=== PATIENT | female | born 1980 | race Caucasian/White ===

== ENCOUNTER → 2020-09-21 10:39 | Outpatient (CLI) | payer OTHER, SELFPAY ==
--- NOTE | ~2020-09-21 | MM_ITS ---
EXAMINATION: MM screening [facility] BI w jose luis HISTORY: Screening TECHNIQUE: Craniocaudal and mediolateral oblique 3-D tomosynthesis images were obtained and synthetic 2-D images were generated. CAD analysis was submitted and interpreted. COMPARISON: 08/07/2016 BREAST PARENCHYMAL COMPOSITION: The breasts are extremely dense, which lowers the sensitivity of mamm ography FINDINGS: There is no evidence of suspicious mass, calcification, or architectural distortion to sugg est malignancy in either breast. There has been no suspicious interval change. IMPRESSION: 1. No mammographic evidence of malignancy. 2. Recommend routine screening mammography in one year. BI-RADS Category 1: Negative Reviewed, dictated and finalized at location A. SUPERVISOR OF ENGINES
== END ==
PROVIDERS: PCP Physician Assistant; Visit Provider Obstetrics & Gynecology
DX: Z12.31 Encounter for screening mammogram for malignant neoplasm of breast (principal)
CPT/HCPCS: 77063; 77067

== ENCOUNTER → 2020-11-27 14:10 | Outpatient (CLI) | payer OTHER, SELFPAY ==
--- NOTE | ~2020-11-27 | MR_ITS ---
EXAMINATION: MR knee LT wo con DATE: 11/27/2020 14:50 INDICATION: Lateral left knee pain TECHNIQUE: Magnetic resonance imaging (MRI) of the left knee was performed without intravenous contra st. Sequences included coronal PD-weighted FSE, coronal PD-weighted FS FSE, sagittal T2-weighted FSE , sagittal PD-weighted FS FSE and axial PD weighted fat saturated FSE. COMPARISON: None. FINDINGS: Medial compartment: Medial meniscus is normal. Partial-thickness chondral fissuring without degenerative subchondral howard ges at the anterior weightbearing medial femoral condyle. Lateral compartment: Lateral meniscus is normal. Small region of partial-thickness chondral ulceration without degenerativ e subchondral changes at the central weightbearing lateral femoral condyle. Patellofemoral compartment: Horizontal band of deep chondral fissuring extending across the central aspect of the talus and the m edial to the lateral facet. Additional chondral fissuring with underlying subarticular edema at the c entral aspect of the trochlear groove and lateral trochlea. There is a partial-thickness chondral fla p tear at the cephalad aspect of the medial trochlea. Ligaments and tendons: Posterior cruciate ligament is normal. Changes of chronic anterior cruciate ligament reconstruction. There is increased intrasubstance signal and lax appearance to the distal aspect of the graft as it a pproaches the tibial tunnel consistent with at least partial tear. There is a cyclops lesion with janey bular region of torn ligament tissue. Is unclear whether this arises from the graft or represents res idual tissue from [place] ligament. The medial collateral ligament and fibular collateral ligament com plex are normal. Postoperative change of prior patellar tendon autograft harvest with sagittal orient ed band of scarring along the patellar tendon and mild hypertrophic change at the osseous donor sites at the inferior patella and anterior tibial tubercle. The visualized medial and lateral hamstring te ndons as well as the iliotibial band are normal. Fluid: Small left knee joint effusion. No loose osteochondral bodies identified. Small to moderate-sized Ruben er's cyst. Osseous/other: Alignment is normal. No fracture or pathologic marrow replacing process. IMPRESSION: 1. Anterior cruciate ligament reconstruction with likely patellar tendon autograft and at least parti al tear of the distal graft. Correlate with physical exam to assess for degree of residual functional integrity. 2. Mild tricompartmental osteoarthritis with small regions of moderate grade chondromalacia in the me dial and lateral compartments and extensive moderate to high-grade chondromalacia in the patellofemor al compartment. 3. Likely reactive small left knee joint effusion and small to moderate-sized Khoury's cyst. Reviewed, dictated and finalized at location A. IMPRESSION: 1. Anterior cruciate ligament reconstruction with likely patellar tendon autogr aft and at least partial tear of the distal graft. Correlate with physical exam to assess for degree of residual functional integrity. 2. Mild tricompartmental osteoarthritis with small regions of moderate grade ch ondromalacia in the medial and lateral compartments and extensive moderate to h igh-grade chondromalacia in the patellofemoral compartment. 3. Likely reactive small left knee joint effusion and small to moderate-sized B froy's cyst.
== END ==
PROVIDERS: PCP Physician Assistant; Visit Provider Internal Medicine
DX: M17.12 Unilateral primary osteoarthritis, left knee (principal); M71.22 Synovial cyst of popliteal space [Baker], left knee
CPT/HCPCS: 73721

== ENCOUNTER → 2021-09-28 10:41 | Outpatient (CLI) | payer OTHER, SELFPAY ==
--- NOTE | ~2021-09-28 | MM_ITS ---
EXAMINATION: MM screening gilles BI w jose luis HISTORY: Screening mammogram TECHNIQUE: Craniocaudal and mediolateral oblique 3-D tomosynthesis images were obtained and synthetic 2-D images were generated. Bilateral rotated lateral CC views. CAD analysis was submitted and interp reted. COMPARISON: September 21, 2020, August 07, 2016 bilateral screening mammogram examinations BREAST PARENCHYMAL COMPOSITION: The breasts are extremely dense, which lowers the sensitivity of mamm ography. FINDINGS: There is no evidence of suspicious mass, calcification, or architectural distortion to sugg est malignancy in either breast. There has been no suspicious interval change. IMPRESSION: 1. No mammographic evidence of malignancy. 2. Recommend routine screening mammography in one year. BI-RADS Category 1: Negative Reviewed, dictated and finalized at location A. RY CARE DIRECTOR
== END ==
PROVIDERS: Visit Provider Obstetrics & Gynecology
DX: Z12.31 Encounter for screening mammogram for malignant neoplasm of breast (principal)
CPT/HCPCS: 77063; 77067

== ENCOUNTER 2022-10-21 13:12 | Outpatient (NON) | payer OTHER, SELFPAY | END 2022-10-21 13:13 | disposition home or self-care (01) | PROVIDERS: Visit Provider Nurse Practitioner | DX: D22.5 Melanocytic nevi of trunk (principal); L72.11 Pilar cyst | CPT/HCPCS: 88304; 88305 ==

== ENCOUNTER → 2022-12-10 10:49 | Outpatient (CLI) | payer OTHER, SELFPAY ==
--- NOTE | ~2022-12-10 | MM_ITS ---
EXAMINATION: MM screening [facility] BI w jose luis HISTORY: Screening mammogram TECHNIQUE: Craniocaudal and mediolateral oblique 3-D tomosynthesis images were obtained and synthetic 2-D images were generated. CAD analysis was submitted and interpreted. COMPARISON: 09/28/2021, 09/21/2020, 08/07/2016 BREAST PARENCHYMAL COMPOSITION: The breasts are extremely dense, which lowers the sensitivity of mamm ography. FINDINGS: No suspicious mass, calcification, or architectural distortion are identified in either lana ast to suggest malignancy. There has been no suspicious interval change. IMPRESSION: 1. No mammographic evidence of malignancy. 2. Recommend routine screening mammography in one year. BI-RADS Category 1: Negative Reviewed, dictated and finalized at location A.
== END ==
PROVIDERS: PCP Physician Assistant; Visit Provider Obstetrics & Gynecology
DX: Z12.31 Encounter for screening mammogram for malignant neoplasm of breast (principal)
CPT/HCPCS: 77063; 77067

== ENCOUNTER 2023-12-31 10:32 | Outpatient (CLI) | payer OTHER, SELFPAY ==
--- NOTE | ~2023-12-31 | US_ITS ---
EXAMINATION: US thyroid DATE: 12/31/2023 10:47 INDICATION: Thyroid disorder screening. TECHNIQUE: Multiple ultrasound images of the thyroid were obtained. COMPARISON: None. FINDINGS: The right thyroid lobe measures 5.8 x 1.8 x 1.6 cm. The left thyroid lobe measures 5.3 x 1.5 x 1.3 c m. There is normal echotexture and echogenicity throughout the thyroid gland. No discrete nodules id entified. Normal vascular flow is present. IMPRESSION: 1. Normal thyroid. Reviewed, dictated and finalized at location A. IMPRESSION: 1. Normal thyroid.
== END 2023-12-31 10:33 ==
PROVIDERS: PCP Physician Assistant; Visit Provider Physician Assistant
DX: Z13.29 Encounter for screening for other suspected endocrine disorder (principal)
CPT/HCPCS: 76536

== ENCOUNTER 2024-03-18 13:56 | Outpatient (CLI) | payer OTHER, SELFPAY ==
--- NOTE | ~2024-03-18 | MM_ITS ---
EXAMINATION: MM screening gilles BI w jose luis HISTORY: Screening TECHNIQUE: Craniocaudal and mediolateral oblique 3-D tomosynthesis images were obtained and synthetic 2-D images were generated. CAD analysis was submitted and interpreted. COMPARISON: Comparison to multiple prior studies sequentially, with oldest reviewed study dated 11/2016. BREAST PARENCHYMAL COMPOSITION: Dense: The breasts are extremely dense, which lowers the sensitivity of mammography. FINDINGS: The left breast is stable without evidence for malignancy. There is a new focal asymmetry s uperiorly in the right breast on MLO view. There are no suspicious calcifications or architectural di stortion. IMPRESSION: 1. New focal right breast asymmetry superiorly in the right breast on MLO view, anterior-mid depth. 2. Additional mammographic views and possible breast ultrasound are recommended. BI-RADS Category 0: Incomplete: Needs additional imaging evaluation. Reviewed, dictated and finalized at location B. IMPRESSION: 1. New focal right breast asymmetry superiorly in the right breast on MLO view, anterior-mid depth. 2. Additional mammographic views and possible breast ultrasound are recommended . BI-RADS Category 0: Incomplete: Needs additional imaging evaluation.
== END 2024-03-18 13:57 ==
LOC: MICIMG 13:57
PROVIDERS: PCP Physician Assistant; Visit Provider Obstetrics & Gynecology
DX: Z12.31 Encounter for screening mammogram for malignant neoplasm of breast (principal); R92.8 Other abnormal and inconclusive findings on diagnostic imaging of breast
CPT/HCPCS: 77063; 77067

== ENCOUNTER 2024-04-16 09:24 | Outpatient (CLI) | payer OTHER, SELFPAY ==
--- NOTE | ~2024-04-16 | MM_ITS ---
EXAMINATION: MM diagnostic gilles RT w jose luis HISTORY: Asymmetric density superior right breast TECHNIQUE: Additional 3-D tomosynthesis spot compression images of the right breast were performed an d synthetic 2-D images were generated. CAD analysis was submitted and interpreted. COMPARISON: 03/18/2024, 12/10/2022, 09/28/2021 BREAST PARENCHYMAL COMPOSITION:Dense: The breasts are extremely dense, which lowers the sensitivity o f mammography. FINDINGS: The asymmetric density at the upper right breast effaces on spot compression. No persistent mass lesion or distortion. No suspicious mammographic or calcification. IMPRESSION: No mammographic evidence for malignancy. BI-RADS Category 1: Negative Reviewed, dictated and finalized at location .
== END 2024-04-16 09:25 | disposition home or self-care (01) ==
LOC: MICIMG 09:25
PROVIDERS: PCP Physician Assistant; Visit Provider Obstetrics & Gynecology
DX: R92.8 Other abnormal and inconclusive findings on diagnostic imaging of breast (principal)
CPT/HCPCS: 77061; 77065; G0279

== ENCOUNTER 2025-05-26 13:54 | Outpatient (CLI) | payer BC, SELFPAY ==
--- NOTE | ~2025-05-26 | MM_ITS ---
EXAMINATION: MM screening gilles BI w jose luis HISTORY: Screening TECHNIQUE: Craniocaudal and mediolateral oblique 3-D tomosynthesis images were obtained and synthetic 2-D images were generated. CAD analysis was submitted and interpreted. COMPARISON: Comparison to multiple prior studies sequentially, with oldest reviewed study dated , 09/21/2020 BREAST PARENCHYMAL COMPOSITION: The breasts are extremely dense, which lowers the sensitivity of mammography. FINDINGS: There is no evidence of suspicious mass, calcification, or architectural distortion to suggest malignancy in either breast. IMPRESSION: 1. No mammographic evidence of malignancy. 2. Recommend routine screening mammography in one year. BI-RADS Category 1: Negative Reviewed, dictated and finalized at location B.
--- OUTSIDE RECORDS SUMMARY | 2025-05-26 14:56 | XMS_ITS | Clinical Summary ---
Author Organization [facility] [address] Address [address] [place] [address] Care Team Providers Care Scorekeeper Name Role Phone Bonniealice Sydnee GRAFF Primary Care Pr ovider Allergies No known active allergies Medications citalopram (CeleXA) 20 mg tablet citalopram 20 mg tablet TK 1 T D [address] (PROTONIX) 40 mg EC tablet pantoprazole 40 mg tablet,delayed release TK 1 T PO QD Active Active Problems Problem Noted Date Diagnosed Date Acute contact dermatitis 10/31/2020 Cellulitis of neck 10/31/2020 Chronic diarrhea 10/31/2020 Cough 10/31/2020 Diarrhea 10/31/2020 Nausea 10/31/2020 Polyp of gallbladder 10/31/2020 Upper respiratory infection 10/31/2020 Surgical History Surgery Date Site/Laterality Comments ANTERIOR CRUCIATE LIGAMENT REPAIR TONSILLECTOMY ADENOIDECTOMY Medical History Medical History Date Comments Gastric reflux Family History Medical History Relation Name Comments Cancer Other Mental illness Other Relation Name Status Comments Other Social History Tobacco Use Types Packs/Day Years Used Date Smoking Tobacco: Never Personal Safety Answer Date Recorded Getting School Help Needed Not on file 10/18 Comments Unknown Sex and Gender Information Value Date Recorded Sex Assigned at Not on file Legal Sex Female 11:42 AM CDT Gender Identity Not on file Sexual Orientation Not on file Obstetrics History Last Filed Vital Signs Vital Sign Reading Time Taken Comments Blood Pressure 116/74 12/05/2020 11:03 AM CDT Pulse 66 12/05/2020 11:03 AM CDT Temperature 36.3 C (97.4 F) 10/31/2020 9:28 AM CDT Respiratory Rate - - Oxygen Saturation - - Inhaled Oxygen Concentration - - Weight 72.4 kg (159 lb 9.6 oz) 12/05/2020 11:03 AM CDT Height 175.3 cm (5' 9) 12/05/2020 11:03 AM CDT Body Mass Index 23.57 12/05/2020 11:03 AM CDT Plan of Treatment Not on file Insurance Care Teams Scorekeeper Relationship Specialty Start Date End Date Sydnee Mcdonald PA PCP - General Physician Wave Solder Offbearer 10/31/20
--- OUTSIDE RECORDS SUMMARY | 2025-05-26 14:56 | XMS_ITS | Clinical Summary ---
Author Organization [facility] Address [address] [place] [address] Care Team Providers Care Furnace Charger Name Role Phone Sydnee Cox Primary Care Pr ovider Nitin Montes MD Unavailable [phone] Source Comments [facility],non-owned Affiliates and Associated Physician Practices is amultiple site organization consisting of ambulatory clinics and hospital sitesin [place], [place], [place] and [place]. This disclosure is being madepursuant to the Care Everywhere program and may not contain all information available regarding this patient. Last updated 18.[facility] Allergies No known active allergies Medications * Be aware that medications may not be up to date on this document. Alwaysverify current medications with the patient. budesonide (ENTOCORT EC) 3 MG capsule 0 6 Active citalopram (CELEXA) 20 MG tablet TK 1 T PO QD 6 6 Active diphenoxylate-a tropine (LOMOTIL) 2.5-0.025 MG tablet Reported on 06/24/2016 0 6 Active promethazine (PHENERGAN) 25 MG tablet TK 1 T PO Q 4 TO 6 H PRN NV 0 6 Active levonorgestrel- ethinyl estradiol (ALESSE; LEVLITE; AVIANE; LUTERA; LESSINA; SRONYX) 0.1-20 MG-MCG tablet 6 Active omeprazole (PRILOSEC) 40 MG capsule Take 40 mg by mouth daily before breakfast Active ALPRAZolam (XANAX) 0.5 MG tablet alprazolam 0.5 mg tablet Active pantoprazole EC (PROTONIX) 40 MG tablet pantoprazole 40 mg tablet,delayed release TK 1 T PO QD Active azithromycin (ZITHROMAX) 250 MG tablet Take 2 tabs today, then 1 tab daily for next 4 days 6 tablet 1 Active fluticasone propionate (FLONASE) 50 MCG/ACT nasal spray Mchenry 2 (two) sprays into each nostril once daily 1 Each 1 Active Active Problems No known active problems Family History Medical History Relation Name Comments Cholelithiasis Father Relation Name Status Comments Father Social History Tobacco Use Types Packs/Day Years Used Date Smoking Tobacco: Never Smokeless Tobacco: Never Tobacco Cessation:Counseling Given: No Alcohol Use Standard Drinks/Week Comments No 0 (1 standard drink = 0.6 oz pur e alcohol) Comments Unknown Sex and Gender Information Value Date Recorded Sex Assigned at Not on file Legal Sex Female 6:04 AM UNIVERSITY CONTROLLER Gender Identity Not on file Sexual Orientation Not on file Last Filed Vital Signs Vital Sign Reading Time Taken Comments Blood Pressure 124/84 06/12/2021 3:45 PM UNIVERSITY CONTROLLER Pulse 71 06/12/2021 3:45 PM UNIVERSITY CONTROLLER Temperature 36.7 C (98.1 F) 06/12/2021 3:45 PM UNIVERSITY CONTROLLER Respiratory Rate 18 06/12/2021 3:45 PM UNIVERSITY CONTROLLER Oxygen Saturation 97% 06/12/2021 3:45 PM UNIVERSITY CONTROLLER Inhaled Oxygen Concentration - - Weight 72.6 kg (160 lb) 06/12/2021 3:45 PM UNIVERSITY CONTROLLER Height 175.3 cm (5' 9) 06/12/2021 3:45 PM UNIVERSITY CONTROLLER Body Mass Index 23.63 06/12/2021 3:45 PM UNIVERSITY CONTROLLER Plan of Treatment Health Maintenance Due Date Last Done Comments COLOGUARD (AGES 45-75) - COLON CA SCREENING 1980 COLON MONITORING 1980 COLONOSCOPY - COLON CA SCREENING 1980 CT COLONOGRAPHY - COLON CA SCREENING 1980 Colorectal Cancer Screening 1980 FIT - COLON CA SCREENING 1980 FLEX SIG - COLON CA SCREENING 1980 LIPID TESTING 1980 MAMMOGRAM 1980 HIV SCREENING 02/03/1995 HEPATITIS C SCREENING 01/30/1998 DTAP/TDAP/TD VACCINES (1 - Tdap) 02/03/1999 HEPATITIS B VACCINE (1 of 3 - 19+ 3-dose series) 02/03/1999 HPV VACCINE (1 - 3-dose SCDM series) 02/03/2007 DEPRESSION SCREENING 08/04/2024 COVID-19 VACCINE (3 - 2024- season) 2025 11/12/2020, 10/17/2020 INFLUENZA VACCINE (#1) 2025 , 06/09/2019, 05/25/2018, Additional history exists ZOSTER VACCINE (1 of 2) 02/03/2030 HIB VACCINE Aged Out No longer eligi ble based on patient's age to complete this topic MENINGOCOCCAL (Group B) VACCINE SHARED DECISION-MAKING Aged Out No longer eligible based on patient's age to complete this topic MENINGOCOCCAL GROUPS A/C/Y/W VACCINE Aged Out No longer eligible based on patient's age to complete this topic PNEUMOCOCCAL VACCINE Aged Out No long er eligible based on patient's age to complete this topic Insurance [employer] Member Subscriber Plan / Payer (Ef fective 2011-Present) Name:Nicole Gaston Relation to Subscriber:Spouse Name:PEREZ GASTON Subscriber ID:Not on file Date of :1979 (Home) Address: [address] [place] [address] Payer ID:[id number] (NAIC) Type:O Address: [place] [phone] Care Teams Furnace Charger Relationship Specialty Start Date End Date Sydnee Cox PA [address] [place] [address] PCP - General Physician Service Delivery Consultant 05/16/16 Nitin Montes MD [address] [place] [address] Colon and Rectal Surgery 05/16/16
--- OUTSIDE RECORDS SUMMARY | 2025-05-26 14:56 | XMS_ITS | Data Portability ---
Author Organization [employer], [facility] OFF[facility] Address [address] [address] Assessment No assessment recorded. Plan of Treatment Reminders Order Date Submit Date Provider Last Modified By Organization Details Last Modified Time Details Appointments None recorded. Lab CBC w/ auto diff 022 CHARLY Not available 14:04:55 vitamin D, 25-hydrox y, total, serum 022 CHARLY Not available 14:04:56 testoster one, free, serum 022 [email or web address] Not available 12:25:32 testoster one, total, serum 022 [email or web address] Not available 12:25:32 HbA1c (hemoglob in A1c), blood 022 CHARLY Not available 14:04:56 CRP, high sensitivi ty, serum or plasma 022 CHARLY Not available 14:04:56 Referral None recorded. Procedures None recorded. Surgeries None recorded. Imaging XR, knee - lt knee rm 8 [email or web address] Not available 15:26:27 Medication Orders None recorded. Patient TargetsNo targets recorded. Patient InstructionsNo instructions recorded. Reason for Referral None Reported. Results Created Date Observation Date Name Description Value Unit Range Abnormal Flag Note LastModifiedBy Organization Detail LastModifiedTime 11/02/19 22 11/04/2021 CBC (INCL UDES DIFF/ PLT) white blood cell count 5.3 thous and/u L 3.8-10 .8 normal Not Available [address], [address], 11/04/2021 14:04:55 11/02/19 22 11/04/2021 CBC (INCL UDES DIFF/ PLT) red blood cell count 4.57 kindra on/uL 3.80-5 .10 normal Not Available [address], [address], 11/04/2021 14:04:55 11/02/19 22 11/04/2021 CBC (INCL UDES DIFF/ PLT) hemoglobin 13.6 g/dL 11.7-1 5.5 normal Not Available [address], [address], 11/04/2021 14:04:55 11/02/19 22 11/04/2021 CBC (INCL UDES DIFF/ PLT) hematocrit 40.9 % 35.0-4 5.0 normal Not Available [address], [address], 11/04/2021 14:04:55 11/02/19 22 11/04/2021 CBC (INCL UDES DIFF/ PLT) MCV 89.5 fL 80.0-1 00.0 normal Not Available [address], [address], 11/04/2021 14:04:55 11/02/19 22 11/04/2021 CBC (INCL UDES DIFF/ PLT) MCH 29.8 pg 27.0-3 3.0 normal Not Available [address], [address], 11/04/2021 14:04:55 11/02/19 22 11/04/2021 CBC (INCL UDES DIFF/ PLT) MCHC 33.3 g/dL 32.0-3 6.0 normal Not Available [address], [address], 11/04/2021 14:04:55 11/02/19 22 11/04/2021 CBC (INCL UDES DIFF/ PLT) RDW 12.7 % 11.0-1 5.0 normal Not Available [address], [address], 11/04/2021 14:04:55 11/02/19 22 11/04/2021 CBC (INCL UDES DIFF/ PLT) platelet count 237 thous and/u L 140-40 0 normal Not Available [address], [address], 11/04/2021 14:04:55 11/02/19 22 11/04/2021 CBC (INCL UDES DIFF/ PLT) MPV 11.8 fL 7.5-12 .5 normal Not Available [address], [address], 11/04/2021 14:04:55 11/02/19 22 11/04/2021 CBC (INCL UDES DIFF/ PLT) absolute neutrophils 2698 cells /uL 1500-7 800 normal Not Available [address], [address], 11/04/2021 14:04:55 11/02/19 22 11/04/2021 CBC (INCL UDES DIFF/ PLT) absolute lymphocytes 2062 cells /uL 850-39 00 normal Not Available [address], [address], 11/04/2021 14:04:55 11/02/19 22 11/04/2021 CBC (INCL UDES DIFF/ PLT) absolute monocytes 371 cells /uL 200-95 0 normal Not Available [address], [address], 11/04/2021 14:04:55 11/02/19 22 11/04/2021 CBC (INCL UDES DIFF/ PLT) absolute eosinophils 122 cells /uL 15-500 normal Not Available [address], [address], 11/04/2021 14:04:55 11/02/19 22 11/04/2021 CBC (INCL UDES DIFF/ PLT) absolute basophils 48 cells /uL 0-200 normal Not Available [address], [address], 11/04/2021 14:04:55 11/02/19 22 11/04/2021 CBC (INCL UDES DIFF/ PLT) neutrophils 50.9 % normal Not Available [address], [address], 11/04/2021 14:04:55 11/02/19 22 11/04/2021 CBC (INCL UDES DIFF/ PLT) lymphocytes 38.9 % normal Not Available [facility] [address], [address], 11/04/2021 14:04:55 11/02/19 22 11/04/2021 CBC (INCL UDES DIFF/ PLT) monocytes 7.0 % normal Not Available [facility] [address], [address], 11/04/2021 14:04:55 11/02/19 22 11/04/2021 CBC (INCL UDES DIFF/ PLT) eosinophils 2.3 % normal Not Available [facility] [address], [address], 11/04/2021 14:04:55 11/02/19 22 11/04/2021 CBC (INCL UDES DIFF/ PLT) basophils 0.9 % normal Not Available [facility] [address], [address], 11/04/2021 14:04:55 11/02/19 22 11/04/2021 HS CRP hs CRP 1.6 mg/L normal Refer ence Range Optim al <1.0 Viet blanc PS et al. Endoc r Pract .2017 ;23(S uppl 2):1- 87. For ages >17 Years : hs-CR P mg/L Risk Accor ding to AHA/C DC Guide lines <1.0 Lower relat pete cardi ovasc ular risk. 1.0-3 .0 [place] ge relat pete cardi ovasc ular risk. 3.1-1 0.0 Highe r relat pete cardi ovasc ular risk. Consi sonia retes ting in 1 to 2 weeks to exclu de a benig n trans ient eleva tion in the basel ine CRP value secon renae to infec tion or infla mmati on. >10.0 Persi stent eleva tion, upon retes ting, may be assoc iated with infec tion and infla mmati on. Not Available [employer] [facility] [address] , [place], [address], 11/04/2021 14:04:56 11/02/19 22 11/04/2021 VITAM IN D,25- OH,TO JACQUES,I A vitamin D,25-oh,tota l,ia 33 NG/mL 30-100 normal Vitam in D Statu s 25-OH Vitam in D: Defic iency : <20 ng/mL Insuf ficie ncy: 20 - 29 ng/mL Optim al: > or = 30 ng/mL For 25-OH Vitam in D testi ng on patie nts on D2-zavaleta pplem entat ion and patie nts for whom quant itati on of D2 and D3 fract ions is requi red, the [facility] Assur eD(TM ) 25-OH VIT D, (D2,D 3), LC/MS /MS is recom murali d: order code 21455 (fili ents >2yrs ). See Note 1 Note 1 For addit ional infor michael bella e refer to http: //belinda Highia gnost ics.c om/fa q/FAQ 199 (This link is being provi ded for infor deon nal/ educa rebeca l purpo ses only. ) Not Available [facility] [address] [place], [address], 11/04/2021 14:04:56 11/02/19 22 11/04/2021 HEMOG LOBIN A1C hemoglobin A1C 5.0 %_of_ total _HGB <5.7 normal For the purpo se of screcris lawrenceg for the prese nce of diabe elda: <5.7% Consi stent with the absen ce of diabe elda 5.7-6 .4% Consi stent with incre ased risk for diabe elda (pred iabet es) > or =6.5% Consi stent with diabe elda This assay resul t is consi stent with a decre ased risk of diabe elda. Curre ntly, no conse nsus exist s barrett call use of hemog lobin A1c for diagn osis of diabe elda in child apoorva. Accor ding to Ameri can Diabe elda Assoc iatio n (ADA) guide lines , hemog lobin A1c <7.0% repre sents optim al contr ol in non-p regna nt diabe tic patie nts. Diffe rent metri cs may apply to speci fic patie nt popul ation s. Stand ards of Medic al Care in Diabe elda(A DA). Not Available [facility] [address], [address], 11/04/2021 14:04:56 11/02/19 22 11/04/2021 TESTO STERO NE, FREE (DIAL YSIS) AND TOTAL ,MS testosterone , total, MS 29 NG/dL 2-45 For addit ional lacheller michael bella e refer to https ://ed nedaati on.qu prudencio lamar tics. com/f aq/FA Q165 (This link is being provi ded for infor deon nal/e ducat ional purpo ses only. ) (Note ) This test was devel oped and its jenny tical perfo rmanc e nakul cteri stics have been deter mined by [employer]. It has not been clear ed or appro leo by the FDA. This assay has been valid ated pursu ant to the CLIA regul ation s and is used for clini tana purpo ses. Not Available [facility] [address] [place], [address], 11/04/2021 14:04:57 11/02/19 22 11/04/2021 TESTO STERO NE, FREE (DIAL YSIS) AND TOTAL ,MS testosterone , free 1.4 pg/mL 0.1-6. 4 (Note ) This test was devel oped and its jenny tical perfo rmanc e nakul cteri stics have been deter mined by [employer]. It has not been clear ed or appro leo by the FDA. This assay has been valid ated pursu ant to the CLIA regul ation s and is used for clini tana purpo ses. [facility] med fusio n [address] [facility] [address] [facility] [address] [phone] Austen ramsey MD Not Available [facility] [address] , [place], [address], 11/04/2021 14:04:57 10/25/19 22 MRI, knee, w/o contr ast No observ ation record ed. [email or web address] Not Available 2021 11:29:23 10/26/19 22 MRI, knee, w/o contr ast No observ ation record ed. [email or web address] Not Available 2021 08:35:45 11/06/19 22 MRI, knee, w/o contr ast No observ ation record ed. [email or web address] Not Available 2021 09:40:43 11/08/19 22 11/07/2021 MRI, knee, w/o contr ast No observ ation record ed. [email or web address] Not Available 2021 12:38:39 Result Notes None recorded. Procedures Surgical History Date Name Laterality Status Provider Name and Address Organization Details Recorded Time 11/02/19 Generic Procedure completed PRERNA TORRES [address], [place], [address], [employer], [facility] 11/15/2021 15:30:20 08/04/18 98 reconstruction of anterior cruciate ligament of knee joint completed Merced Jenkins [address], [place], [address], [employer], [facility] 11/01/2021 12:28:32 08/04/18 97 reconstruction of anterior cruciate ligament of knee joint completed Merced Lewislieu [address] [facility] [address], [place], [address], [facility] [employer], [facility] 11/01/2021 12:28:29 Tonsillectomy completed Merced Avilesaulieu [address], [place], [address], [facility] [employer], [facility] 11/01/2021 12:28:10 Imaging Results None recorded. Procedure Notes None recorded. Medical Equipment None Reported. Allergies No known drug allergies Medications Name Sig Start Date Stop Date Status Note LastModified by Organization Details LastModified Time azithromycin 250 mg tablet TAKE 2 TABLETS BY MOUTH FOR 1 DAY THEN TAKE 1 TABLET BY MOUTH DAILY FOR 4 DAYS active Not Available Not Available No t Available citalopram 20 mg tablet TAKE 1 TABLET BY MOUTH EVERY DAY active Not Available Not Available No t Available pantoprazole 40 mg tablet,delayed release TAKE 1 TABLET BY MOUTH EVERY DAY active Not Available Not Available No t Available fluticasone propionate 50 mcg/actuation nasal spray,suspensi on SHAKE LIQUID AND USE 2 SPRAYS IN EACH NOSTRIL EVERY DAY active Not Available Not Available No t Available Vitals Date Recorded Heart rate Body height Body mass index (BMI) Body weight Systolic And Diastolic Provider Name and Address Organization Details Last Updated DateTime 11/01/2021 75 /min 175.26 cm 23.6 kg/m2 88845.78 g 100/70 mm[Hg] Merced Jenkins [address] [facility] [address], [place], [address] , [facility] [employer], [facility] 11/01/2021 11:40:25 Social History Question Answer Notes LastModified by Organizat ion Details LastModified Time Tobacco Smoking Status Never Smoker Merced Jenkins [address], [place], [address], [facility] [employer] [facility], [facility] 11/01/2021 12:27:52 What Is Your Relationship Status? Information not available 11/01/2021 Sex: Unknown Functional Status Question Answer Note LastModified by [employer] Details LastModified Time What is your level of alcohol consumption? Occasional Information not available 11/01/2021 Mental Status None recorded. Family History Nothing Reported. Medical History Condition Response Other Cancer N HIV or AIDS N Coronary Artery Disease N Gout N Kidney Stones N Hyperthyroidism N Breast Cancer N Head Trauma/Injury N Hernia N Lung Cancer N Blood Clots N COPD N Depression N Hypothyroidism N Lung Disease N Pacemaker N Parkinson's N Anxiety Disorder N Arthritis N Alcohol / Substance Abuse N Kidney Cancer N Cancer N Stroke N Melanoma N Neck Injury N Leg or Foot Ulcers N High Cholesterol N Skin Cancer N Liver Disease N Rheumatoid Arthritis N Headaches N Fibromyalgia N Concussion N Kidney Disease N Heart Problems N Chronic use of Pain Medication N Prostate Cancer N Migraines N Thyroid Problems N Alzheimers N Autoimmune Disorder N Anemia N Multiple Sclerosis N [place]endon Tear N Ulcers N Heart Attack (IN) N Osteopenia N Diabetes N Bleeding Disorder N Seizures/Epilepsy N Cardiac Stent N Tuberculosis N A-FIB N Urinary Tract Infection N Back Problems N Diverticulitis N Asthma N Lupus N Peripheral Vascular Disease N Sleep Disorder N GERD/Reflux Y Hepatitis N Aneurysm N Thyroid Cancer N Heart Disease N Pulmonary Embolism N Hypertension N Osteoporosis N Gynecological HistoryNo gynecological history recorded. Obstetrics History GPAL:G 0 P 0 0 0 0 Past Encounters Encounter ID Performer Location Encounter Start Date Encounter Closed Date Diagnosis/Indication Diagnosis SNOMED-CT Code Diagnosis ICD10 Code Diagnosis IMO Codes Diagnosis Note [id number] PRERNA TORRES [facility] [address] [place] [address] 11/01/2021 11:33:52 11/01/2021 15:26:27 Pain of knee region 5406668116 M25.569 Knee pain 81606690 M25.5 69 Screening procedure 2012 5006 Z13.9 Z01.812 R53.83 M89.9 M94.9 E55.9 Z13.228 Z13.1 M02.80 Osteoarthr itis of left knee joint 2703424009 91769 M17.12 At today's office visit the patient's diagnosis and treatment options were discussed in great detail. The patient was provided with informatio n to make an informativ e decision on the next steps for treatment. The patient has tried several conservati ve measures including but not limited to PT, rest, ice, and NSAIDs with no beneficial relief. Given the imaging results and the duration of the patient's symptoms I would recommend BMAC with fat as they are an excellent candidate. We discussed the need for PRP at [facility] the 12-week chalo. The risk and benefits were discussed with the patient as well as functional and pain improvemen t outcomes. The procedure was discussed in detail as well as the recovery period. We also discussed obtaining labs to ensure the patient is optimized for maximal results. I also discussed other conservati ve options. The patients case and treatment plan were reviewed in detail with Dr. Wise. PLAN: [facility]/fat to left knee PF joint, ACL All questions were answered, the patient understood the treatment plan. Greater than 45 minutes face-to-fa ce visit with more than 50% of my time spent counseling the patient about their diagnosis including pathophysi ology and treatment options. Health Concerns Section Related Observation LastModified by Organization Detai ls LastModified Time None Recorded Concern Status LastModified by Organization Details LastModified Time None Recorded Advance Directives Directive None Recorded Payers Insurance Date Sequence Insurance Name Policy Number Policy Helms Covered Member ID Helms Member ID Guarantor Name 11/16/2021 1 [facility] [id number] Perez Gaston [id number] Nicole Gaston Notes Date Note Type Note Provider Name and Address Organization Details Recorded Time 11/01/2021 text/html 41-year-old female comes in today complaining of left knee pain has been ongoing now for the last year and a half. She states she had no known injury. She does have a prior ACL reconstruction of that left knee. She states that her pain has progressively gotten better. She has been through a course of physical therapy as well as a corticosteroid injection. She states her pain is intermittent and she has anterior pain as well as posterior knee pain. She describes stiffness and popping. She rates her pain as a 2/10. Stairs, squatting and prolonged sitting causes her pain. Sharp ice, physical therapy nonsteroidal anti-inflammatories as well as a corticosteroid injection in November 2020. PRERNA TORRES [address], [place], [address], [facility] [employer], [facility] 11/15/2021 15:30:47 OBGyn Episode No OBEpisode recorded.
== END 2025-05-26 13:55 | disposition home or self-care (01) ==
LOC: ANHFOHIMG 13:57
PROVIDERS: PCP Physician Assistant; Referring Provider Specialist; Visit Provider Obstetrics & Gynecology
DX: Z12.31 Encounter for screening mammogram for malignant neoplasm of breast (principal)
CPT/HCPCS: 77063; 77067